=== PATIENT | female | born 1980 | race Two or more races ===

== ENCOUNTER 2017-04-24 00:37 | Emergency (ER) | payer BC, MEDICAID ==
[2017-04-24] MEDS ORDERED: Sodium Chloride 0.9% 2.5 ML Syringe FLUSH PRN (00:58)
[2017-04-24] MEDS ORDERED: Ketorolac 30 MG/ML SDV IVPUSH ONE (00:58)
[2017-04-24] MEDS ORDERED: Sodium Chloride 0.9% 10 ML Syringe FLUSH PRN (00:58)
[2017-04-24] MEDS ORDERED: Sodium Chloride 0.9% 1,000 ML IV ONE (00:58)
[2017-04-24] MEDS ORDERED: Ondansetron 4 MG/2 ML SDV IVPUSH ONE (00:58)
[2017-04-24] MEDS ORDERED: Morphine 2 MG/ML Syringe IVPUSH ONE (00:58)
--- NOTE | 2017-04-24 01:02 | EDM.PDOC ---
ED HPI GENERAL MEDICAL PROBLEM - General Chief Complaint: Abdominal Pain Stated Complaint: ABD PAIN Time Seen by Provider: 04/24/17 00:52 - History of Present Illness INITIAL COMMENTS - FREE TEXT/NARRATIVE: HISTORY AND PHYSICAL: History of present illness: Patient is a 37-year-old female who presents with onset of mid abdominal pain which is cramping and comes and goes in intensity associated with nausea and vomiting several hours ago. She says she has had this before and has been evaluated with ultrasound and CAT scans in fact was told [facility] that she might have a small blockage and they were going to operate but then they decided not to because she was too young. She says that she has had flareups of this over many years but recently she was she had no episodes of this. She is post for a month and is not breast-feeding. She said that she has issues with constipation but tries to take her MiraLAX daily and she says that she has had normal bowel movements including one today and then had some loose stools afterwards. She has had nausea and vomiting with the pain but the vomiting is more just dry heaves not actually fluid. She's no urinary complaints no fever no upper respiratory symptoms. She has never had any surgical procedures on her abdomen Review of systems: As per history of present illness and below otherwise all systems reviewed and negative. Past medical history: As per history of present illness and as reviewed below otherwise noncontributory. Surgical history: As per history of present illness and as reviewed below otherwise noncontributory. Social history: No reported history of drug or alcohol abuse. Family history: As per history of present illness and as reviewed below otherwise noncontributory. Physical exam: HEENT: Atraumatic, normocephalic, pupils reactive, negative for conjunctival pallor or scleral icterus, mucous membranes moist, throat clear, neck supple, nontender, trachea midline. Lungs: Clear to auscultation, breath sounds equal bilaterally, chest nontender. Heart: S1S2, regular, negative for clicks, rubs, or JVD. Abdomen: Soft, nondistended, nontender. The patient points to her mid abdomen as the area of tenderness initially when I palpated there was tenderness when I distract her there is minimal tenderness. Bowel sounds are very hypoactive and there is no rebound or guarding. Negative for masses or hepatosplenomegaly. Negative for costovertebral tenderness. Pelvis: Stable nontender. Genitourinary: Deferred. Rectal: Deferred. Extremities: Atraumatic, negative for cords or calf pain. Neurovascular unremarkable. Neuro: Awake, alert, oriented. Cranial nerves II through XII unremarkable. Cerebellum unremarkable. Motor and sensory unremarkable throughout. Exam nonfocal. Diagnostics: CBC CMP amylase lipase UA hCG lactic acid CT scan of the abdomen and pelvis Therapeutics: IV fluids Toradol Zofran morphine Patient is feeling much improved and I discussed with the CT scan findings which sound very similar to what she described to me where a surgeon was going to operate but then opted not to operate as there might be a blockage but then she improved. I told her that she needs to get connected with our clinic and follow this up as she has had multiple episodes in the past of this and perhaps she can get referral to GI. She may need other imaging going forward to further evaluate this as a motility issue or potential he as scar tissue that is tingling the bowel up. I told her this all can be discussed with her provider in the clinic and I will give her some Zofran and Bentyl for home. Impression: Abdominal pain with vomiting Definitive disposition and diagnosis as appropriate pending reevaluation and review of above. Abdominal Pain Score (Numeric/FACES): 9 - Related Data Allergies Allergy/AdvReac Type Severity Reaction Status Date / Time No Known Allergies Allergy Verified 04/24/17 00:51 Home Meds: Home Meds . [No Known Home Meds] 04/24/17 [History] Past Medical History - Past Health History Medical/Surgical History: Denies Medical/Surgical History [employer] History: Reports: - Infectious Disease History Infectious Disease History: Reports: Chicken Pox, Measles Social & Family History - Tobacco Use Smoking Status *Q: Former Smoker Used Tobacco, but Quit: Yes Month Tobacco Last Used: 2004 - Caffeine Use Caffeine Use: Reports: Coffee - Recreational Drug Use Recreational Drug Use: No ED ROS GENERAL - Review of Systems Review Of Systems: ROS reveals no pertinent complaints other than HPI. ED EXAM, GENERAL - Physical Exam Exam: See Below (See dictation) Course - Vital Signs Last Recorded V/S: Last Vital Signs Temp 36.6 C 04/24/17 03:17 Pulse 76 04/24/17 03:17 Resp 18 04/24/17 03:17 BP 102/53 L 04/24/17 03:17 Pulse Ox 97 04/24/17 03:17 - Orders/Labs/Meds Orders: Active Orders 24 hr Category Date Time Status Abdomen Pelvis w Cont [CT] Stat Exams 04/24/17 00:58 Taken Sodium Chloride 0.9% [Saline Flush] Med 04/24/17 00:58 Active 10 ml FLUSH ASDIRECTED PRN Sodium Chloride 0.9% [Saline Flush] Med 04/24/17 00:58 Active 2.5 ml FLUSH ASDIRECTED PRN Saline Lock Insert [OM.PC] Stat Oth 04/24/17 00:58 Ordered Medication Orders Sodium Chloride (Saline Flush) 10 ml FLUSH ASDIRECTED PRN PRN Reason: Keep Vein Open Last Admin: 04/24/17 01:21 Dose: 10 ml Sodium Chloride (Saline Flush) 2.5 ml FLUSH ASDIRECTED PRN PRN Reason: Keep Vein Open Last Admin: 04/24/17 01:21 Dose: 2.5 ml Labs: Laboratory Tests 04/24/17 04/24/17 04/24/17 Range/Units 01:15 01:15 01:15 WBC 6.51 (4.0-11.0) K/uL RBC 4.37 (4.30-5.90) M/uL Hgb 14.0 (12.0-16.0) g/dL Hct 40.3 (36.0-46.0) % MCV 92.2 (80.0-98.0) fL MCH 32.0 (27.0-32.0) pg MCHC 34.7 (31.0-37.0) g/dL RDW Std Deviation 43.7 (28.0-62.0) fl RDW Coeff of Reuben 13 (11.0-15.0) % Plt Count 232 (150-400) K/uL MPV 9.90 (7.40-12.00) fL Neut % (Auto) 67.4 (48.0-80.0) % Lymph % (Auto) 27.6 (16.0-40.0) % [place] % (Auto) 3.7 (0.0-15.0) % Eos % (Auto) 1.1 (0.0-7.0) % Baso % (Auto) 0.2 (0.0-1.5) % Neut # (Auto) 4.4 (1.4-5.7) K/uL Lymph # (Auto) 1.8 (0.6-2.4) K/uL [place] # (Auto) 0.2 (0.0-0.8) K/uL Eos # (Auto) 0.1 (0.0-0.7) K/uL Baso # (Auto) 0.0 (0.0-0.1) K/uL Nucleated RBC % 0.0 /100WBC Nucleated RBCs # 0 K/uL Lactate 1.2 (0.20-2.00) mmol/L Sodium 140 (136-146) mmol/L Potassium 3.8 (3.5-5.1) mmol/L Chloride 106 (98-110) mmol/L Carbon Dioxide 26 (21-31) mmol/L BUN 14 (6.0-23.0) mg/dL Creatinine 0.6 (0.6-1.5) mg/dL Est Cr Clr Drug Dosing 132.02 mL/min Estimated GFR (MDRD) > 60.0 ml/min Glucose 109 (60-110) mg/dL Calcium 9.3 (8.8-10.8) mg/dL Total Bilirubin 0.3 (0.1-1.5) mg/dL AST 18 (5-40) IU/L ALT 22 (8-54) IU/L Alkaline Phosphatase 83 (40-150) Total Protein 7.6 (6.0-8.0) g/dL Albumin 4.1 (3.5-5.0) g/dL Globulin 3.5 (2.0-3.5) g/dL Albumin/Globulin Ratio 1.2 L (1.3-2.8) Amylase 47 (10-90) U/L Lipase 9 (7-80) U/L HCG, Qual (NEG) Urine Color Urine Appearance Urine pH (5.0-8.0) Ur Specific [place] (1.001-1.035) Urine Protein (NEGATIVE) mg/dL Urine Glucose (UA) (NEGATIVE) mg/dL Urine Ketones (NEGATIVE) mg/dL Urine Occult Blood (NEGATIVE) Urine Nitrite (NEGATIVE) Urine Bilirubin (NEGATIVE) Urine Urobilinogen (<2.0) EU/dL Ur Leukocyte Esterase (NEGATIVE) Urine RBC (0-2/HPF) Urine WBC (0-5/HPF) Ur Epithelial Cells (NONE-FEW) Urine Bacteria (NEGATIVE) 04/24/17 04/24/17 Range/Units 01:15 02:00 WBC (4.0-11.0) K/uL RBC (4.30-5.90) M/uL Hgb (12.0-16.0) g/dL Hct (36.0-46.0) % MCV (80.0-98.0) fL MCH (27.0-32.0) pg MCHC (31.0-37.0) g/dL RDW Std Deviation (28.0-62.0) fl RDW Coeff of Reuben (11.0-15.0) % Plt Count (150-400) K/uL MPV (7.40-12.00) fL Neut % (Auto) (48.0-80.0) % Lymph % (Auto) (16.0-40.0) % [place] % (Auto) (0.0-15.0) % Eos % (Auto) (0.0-7.0) % Baso % (Auto) (0.0-1.5) % Neut # (Auto) (1.4-5.7) K/uL Lymph # (Auto) (0.6-2.4) K/uL [place] # (Auto) (0.0-0.8) K/uL Eos # (Auto) (0.0-0.7) K/uL Baso # (Auto) (0.0-0.1) K/uL Nucleated RBC % /100WBC Nucleated RBCs # K/uL Lactate (0.20-2.00) mmol/L Sodium (136-146) mmol/L Potassium (3.5-5.1) mmol/L Chloride (98-110) mmol/L Carbon Dioxide (21-31) mmol/L BUN (6.0-23.0) mg/dL Creatinine (0.6-1.5) mg/dL Est Cr Clr Drug Dosing mL/min Estimated GFR (MDRD) ml/min Glucose (60-110) mg/dL Calcium (8.8-10.8) mg/dL Total Bilirubin (0.1-1.5) mg/dL AST (5-40) IU/L ALT (8-54) IU/L Alkaline Phosphatase (40-150) Total Protein (6.0-8.0) g/dL Albumin (3.5-5.0) g/dL Globulin (2.0-3.5) g/dL Albumin/Globulin Ratio (1.3-2.8) Amylase (10-90) U/L Lipase (7-80) U/L HCG, Qual NEGATIVE (NEG) Urine Color YELLOW Urine Appearance CLEAR Urine pH 7.5 (5.0-8.0) Ur Specific [place] 1.010 (1.001-1.035) Urine Protein NEGATIVE (NEGATIVE) mg/dL Urine Glucose (UA) NEGATIVE (NEGATIVE) mg/dL Urine Ketones NEGATIVE (NEGATIVE) mg/dL Urine Occult Blood NEGATIVE (NEGATIVE) Urine Nitrite NEGATIVE (NEGATIVE) Urine Bilirubin NEGATIVE (NEGATIVE) Urine Urobilinogen 0.2 (<2.0) EU/dL Ur Leukocyte Esterase NEGATIVE (NEGATIVE) Urine RBC 0-3 (0-2/HPF) Urine WBC 0-3 (0-5/HPF) Ur Epithelial Cells FEW (NONE-FEW) Urine Bacteria FEW (NEGATIVE) Meds: Medications Generic Name Dose Route Start Last Admin Trade Name Yao PRN Reason Stop Dose Admin Sodium Chloride 10 ml 04/24/17 00:58 04/24/17 01:21 Saline Flush FLUSH 10 ml ASDIRECTED PRN Administration Keep Vein Open Sodium Chloride 2.5 ml 04/24/17 00:58 04/24/17 01:21 Saline Flush FLUSH 2.5 ml ASDIRECTED PRN Administration Keep Vein Open Discontinued Medications Generic Name Dose Route Start Last Admin Trade Name Yao PRN Reason Stop Dose Admin Sodium Chloride 1,000 mls @ 999 mls/hr 04/24/17 00:58 04/24/17 01:15 Normal Saline IV 04/24/17 01:58 999 mls/hr STAT ONE Administration Iopamidol 100 ml 04/24/17 02:01 04/24/17 02:26 Isovue Multipack-370 (76%) IVPUSH 04/24/17 02:02 100 ml ONETIME STA Administration Ketorolac Tromethamine 30 mg 04/24/17 00:58 04/24/17 01:17 Toradol IVPUSH 04/24/17 00:59 30 mg ONETIME ONE Administration Morphine Sulfate 4 mg 04/24/17 00:58 04/24/17 01:21 Morphine IVPUSH 04/24/17 00:59 4 mg ONETIME ONE Administration Ondansetron HCl 4 mg 04/24/17 00:58 04/24/17 01:15 Zofran IVPUSH 04/24/17 00:59 4 mg ONETIME ONE Administration Departure - Departure Time of Disposition: 03:32 Disposition: Home, Self-Care 01 Condition: Good Clinical Impression: Abdominal pain Qualifiers: Abdominal location: periumbilical Qualified Code(s): R10.33 - Periumbilical pain Vomiting Qualifiers: Vomiting type: unspecified Vomiting Intractability: non-intractable Nausea presence: with nausea Qualified Code(s): R11.2 - Nausea with vomiting, unspecified - Discharge Information Referrals: PCP,None [Primary Care Provider] - Forms: ED Department Discharge Additional Instructions: The following information is given to patients seen in the emergency department who are being discharged to home. This information is to outline your options for follow-up care. We provide all patients seen in our emergency department with a follow-up referral. The need for follow-up, as well as the timing and circumstances, are variable depending upon the specifics of your emergency department visit. If you don't have a primary care physician on staff, we will provide you with a referral. We always advise you to contact your personal physician following an emergency department visit to inform them of the circumstance of the visit and for follow-up with them and/or the need for any referrals to a consulting specialist. The emergency department will also refer you to a specialist when appropriate. This referral assures that you have the opportunity for followup care with a specialist. All of these measure are taken in an effort to provide you with optimal care, which includes your followup. Under all circumstances we always encourage you to contact your private physician who remains a resource for coordinating your care. When calling for followup care, please make the office aware that this follow-up is from your recent emergency room visit. If for any reason you are refused follow-up, please contact the [facility] emergency department at and ask to speak to the emergency department charge nurse. [facility] Primary care- Internal Medicine and Family [address] [address] These contact the clinic and schedule an appointment for reevaluation and further care of this recurring problem. Please try to eat high-fiber foods as you've been doing and use your MiraLAX on a daily basis. Please use Zofran and dicyclomine given to you from [facility] as needed for bowel cramping and vomiting. Return to ER as needed and as discussed. - My Orders Last 24 Hours: My Active Orders 04/24/17 00:58 Abdomen Pelvis w Cont [CT] Stat Sodium Chloride 0.9% [Saline Flush] 10 ml FLUSH ASDIRECTED PRN Sodium Chloride 0.9% [Saline Flush] 2.5 ml FLUSH ASDIRECTED PRN Saline Lock Insert [OM.PC] Stat - Assessment/Plan Last 24 Hours: My Active Orders 04/24/17 00:58 Abdomen Pelvis w Cont [CT] Stat Sodium Chloride 0.9% [Saline Flush] 10 ml FLUSH ASDIRECTED PRN Sodium Chloride 0.9% [Saline Flush] 2.5 ml FLUSH ASDIRECTED PRN Saline Lock Insert [OM.PC] Stat
[2017-04-24 01:58] LABS: CHLORIDE,CL 106 mmol/L (98-110); SODIUM,NA 140 mmol/L (136-146)
[2017-04-24] MEDS ORDERED: Iopamidol 755 MG/ML 500 ML Multipack Bottle IVPUSH STA (02:01)
--- NOTE | 2017-04-25 17:44 | CT ---
EXAM DATE: 04/24/17 PATIENT'S AGE: 37 Patient: BILLIE ISLAS Facility: [place], [place] Site . Site : [id number] Study: CT Abdomen/Pelvis [id number] 3:05:13 AM Ordering Physician: Yahir Saez Final Report: INDICATION: Abdominal pain TECHNIQUE: CT Abdomen and pelvis with i.v. contrast. Coronal and sagittal reformats were obtained. CONTRAST: Intravenous COMPARISON: None FINDINGS: Lower chest: Unremarkable. Liver: Unremarkable. Spleen: Unremarkable. Pancreas: Unremarkable. Gallbladder: Unremarkable. Kidney: Unremarkable. No kidney or ureteral stones or obstruction seen. Adrenal: Unremarkable. Bowel: The small bowel is mildly prominent in the upper abdomen. No definite transition point is identified. The appendix is normal in appearance and size. Small fat containing umbilical hernia is noted. Vascular: Unremarkable. Lymph: Unremarkable. Peritoneum: Unremarkable. No pneumoperitoneum is seen. Small amount of ascites is present and is likely physiologic in origin. Pelvis: Unremarkable. Soft tissue: Unremarkable. Bone: Unremarkable for age. IMPRESSION: 1. The small bowel is mildly prominent in the upper abdomen. No definite transition point is identified. Clinical and imaging follow up is recommended to distinguish between peristalsis, early small bowel obstruction, or adynamic ileus. Dictated by Lake Shelton MD @ 04/24/2017 3:15:34 AM Dictated by: Lake Shelton MD @ 04/24/2017 03:15:37 (Electronic Signature) Report Signed by Proxy. NATALIA
== END 2017-04-24 03:52 | disposition home or self-care (01) ==
LOC: MW.ED 00:37
DX: R10.33 Periumbilical pain (principal); R11.2 Nausea with vomiting, unspecified; Z87.891 Personal history of nicotine dependence
CPT/HCPCS: 74177; 80053; 81001; 82150; 83605; 83690; 84703; 85025; 96361; 96374; 96375; 99284; J1885; J2270; J2405; J7040; Q9967

== ENCOUNTER 2017-06-24 22:28 | Emergency (ER) | payer BC, MEDICAID ==
--- NOTE | 2017-06-24 22:34 | EDM.PDOC ---
ED HPI GENERAL MEDICAL PROBLEM - General Chief Complaint: Gastrointestinal Problem Stated Complaint: NAUSEA/VOMITING Time Seen by Provider: 06/24/17 22:45 - History of Present Illness INITIAL COMMENTS - FREE TEXT/NARRATIVE: HISTORY AND PHYSICAL: History of present illness: Patient is a 37-year-old female who presents today with mid abdominal pain which is crampy and sharp in nature associated with nausea and vomiting and inability to tolerate by mouth for the last 3 hours. Patient says she has episodes like this in the past and I've seen her here in April for same. The patient says this is typical of her episodic abdominal pain with vomiting. She has not had diarrhea and in fact had a normal bowel movement earlier today. She has not had any new foods and has been trying to eat more healthy diet. She has had no recent travel no fevers no cough runny nose upper respiratory infection and no flank pain or urinary complaints. Patient did not take any medications prior to coming here. The patient says that the pain does not localize right or left and is mostly in the mid abdominal area and she feels somewhat bloated. Everything about today's episode is very similar to her prior episodes. The patient is not had dizziness or lightheadedness. Please note that this patient was seen in the emergency department by me on April 24 of last year. At that time she had presented with crampy mid abdominal pain which waxed and waned in intensity that was associated with nausea and vomiting. On that visit she had told me that this has happened many times before and had been evaluated with imaging ultrasounds and CAT scans and that she was in fact told in [place] that she might have a small bowel obstruction and they were going to operate but then they decided not to because "she was too young". She told me at that time that she has flareups many times over the last few years but when she was recently she did not have any flareups. The patient delivered her baby in March. Patient also told me at that time she has issues with constipation but takes MiraLAX on a daily basis in order to prevent this. On that evaluation in April she had a full lab workup and CAT scan and the CAT scan revealed a potential ileus versus early small bowel obstruction that there was no transition point and because she was feeling much improved and she thought that her symptoms were very similar to prior episodes that she preferred to follow-up in the clinic. The patient has no vaginal bleeding or lower abdominal/pelvic pain Review of systems: As per history of present illness and below otherwise all systems reviewed and negative. Past medical history: As per history of present illness and as reviewed below otherwise noncontributory. Surgical history: As per history of present illness and as reviewed below otherwise noncontributory. Social history: No reported history of drug or alcohol abuse. Family history: As per history of present illness and as reviewed below otherwise noncontributory. Physical exam: Gen.: Well-developed well-nourished female who is nontoxic and vital signs are noted by me including triage blood pressure HEENT: Atraumatic, normocephalic, pupils reactive, negative for conjunctival pallor or scleral icterus, mucous membranes tacky throat clear, neck supple, nontender, trachea midline. Lungs: Clear to auscultation, breath sounds equal bilaterally, chest nontender. Heart: S1S2, regular, negative for clicks, rubs, or JVD. Abdomen: Soft, nondistended, bowel sounds are normoactive with an occasional santos, there is no tympany on percussion, there is tenderness in the mid abdomen area on deep palpation without rebound or guarding. Negative for masses or hepatosplenomegaly. Negative for costovertebral tenderness. Pelvis: Stable nontender. Genitourinary: Deferred. Rectal: Deferred. Extremities: Atraumatic, negative for cords or calf pain. Neurovascular unremarkable. Neuro: Awake, alert, oriented. Cranial nerves II through XII unremarkable. Cerebellum unremarkable. Motor and sensory unremarkable throughout. Exam nonfocal. Diagnostics: CBC CMP amylase lipase lactic acid UA hCG CT scan of the abdomen and pelvis EKG , please see below for more testing Therapeutics: IV O2 monitor IV fluids Zofran and morphine Please note that the patient's urine test is positive. The patient told me that she had a normal period last month but she does not use contraception and she is completely surprised by this test results. SHe has a 4- month-old child at home. I will add a serum quantitative hCG canceled the CAT scan and order a pelvic ultrasound. Patient is aware of ultrasound results revealing an intrauterine at 6 weeks 1 day but with a bradycardic heartbeat. She is aware that she needs close follow-up with one of our OB MDs and she currently tells me that she is having no abdominal pain she had when she arrived. Due to her history I told her that we cannot perform CAT scan or x-rays due to the but as she is feeling better she feels comfortable with follow-up and she will return if the pain returns or symptoms progress. She is currently not vomiting I will send her home with some Zofran. Impression: Abdominal pain with vomiting (with history of similar episodes), stable improved , first trimester with bradycardia Definitive disposition and diagnosis as appropriate pending reevaluation and review of above. abdominal pain Pain Score (Numeric/FACES): 8 - Related Data Allergies Allergy/AdvReac Type Severity Reaction Status Date / Time No Known Allergies Allergy Verified 06/24/17 22:41 Home Meds: Home Meds . [No Known Home Meds] 04/24/17 [History] Past Medical History - Past Health History Medical/Surgical History: Denies Medical/Surgical History [employer] History: Reports: - Infectious Disease History Infectious Disease History: Reports: Chicken Pox, Measles Social & Family History - Tobacco Use Smoking Status *Q: Former Smoker Used Tobacco, but Quit: Yes Month Tobacco Last Used: 2004 - Caffeine Use Caffeine Use: Reports: Coffee - Recreational Drug Use Recreational Drug Use: No ED ROS GENERAL - Review of Systems Review Of Systems: ROS reveals no pertinent complaints other than HPI. ED EXAM, GENERAL - Physical Exam Exam: See Below (see dictation) Course - Vital Signs Last Recorded V/S: Last Vital Signs Temp 36.8 C 06/24/17 22:31 Pulse 78 06/25/17 00:45 Resp 18 06/25/17 00:45 BP 102/60 06/25/17 00:45 Pulse Ox 97 06/25/17 00:45 - Orders/Labs/Meds Orders: Active Orders 24 hr Category Date Time Status Cardiac Monitoring [RC] . DIRECTED Care 06/24/17 22:56 Active EKG Documentation Completion [RC] STAT Care 06/24/17 22:56 Active Pulse Oximetry [RC] ASDIRECTED Care 06/24/17 22:56 Active OB 1st Tri Sgl 1st Gest [US] Stat Exams 06/25/17 00:19 Taken Sodium Chloride 0.9% [Saline Flush] Med 06/24/17 22:57 Active 10 ml FLUSH ASDIRECTED PRN Sodium Chloride 0.9% [Saline Flush] Med 06/24/17 22:57 Active 2.5 ml FLUSH ASDIRECTED PRN Saline Lock Insert [OM.PC] Stat Oth 06/24/17 22:56 Ordered Medication Orders Sodium Chloride (Saline Flush) 10 ml FLUSH ASDIRECTED PRN PRN Reason: Keep Vein Open Sodium Chloride (Saline Flush) 2.5 ml FLUSH ASDIRECTED PRN PRN Reason: Keep Vein Open Labs: Laboratory Tests 06/24/17 06/24/17 06/24/17 Range/Units 22:40 22:40 22:40 WBC 6.63 (4.0-11.0) K/uL RBC 4.48 (4.30-5.90) M/uL Hgb 13.9 (12.0-16.0) g/dL Hct 40.8 (36.0-46.0) % MCV 91.1 (80.0-98.0) fL MCH 31.0 (27.0-32.0) pg MCHC 34.1 (31.0-37.0) g/dL RDW Std Deviation 41.1 (28.0-62.0) fl RDW Coeff of Reuben 12 (11.0-15.0) % Plt Count 269 (150-400) K/uL MPV 9.80 (7.40-12.00) fL Neut % (Auto) 68.2 (48.0-80.0) % Lymph % (Auto) 27.5 (16.0-40.0) % Garza % (Auto) 3.5 (0.0-15.0) % Eos % (Auto) 0.6 (0.0-7.0) % Baso % (Auto) 0.2 (0.0-1.5) % Neut # (Auto) 4.5 (1.4-5.7) K/uL Lymph # (Auto) 1.8 (0.6-2.4) K/uL Garza # (Auto) 0.2 (0.0-0.8) K/uL Eos # (Auto) 0.0 (0.0-0.7) K/uL Baso # (Auto) 0.0 (0.0-0.1) K/uL Nucleated RBC % 0.0 /100WBC Nucleated RBCs # 0 K/uL Lactate 0.8 (0.20-2.00) mmol/L Sodium 140 (136-146) mmol/L Potassium 3.9 (3.5-5.1) mmol/L Chloride 107 (98-110) mmol/L Carbon Dioxide 24 (21-31) mmol/L BUN 11 (6.0-23.0) mg/dL Creatinine 0.8 (0.6-1.5) mg/dL Est Cr Clr Drug Dosing 99.01 mL/min Estimated GFR (MDRD) > 60.0 ml/min Glucose 101 (60-110) mg/dL Calcium 9.3 (8.8-10.8) mg/dL Total Bilirubin 0.4 (0.1-1.5) mg/dL AST 15 (5-40) IU/L ALT 16 (8-54) IU/L Alkaline Phosphatase 73 (40-150) Total Protein 7.6 (6.0-8.0) g/dL Albumin 4.3 (3.5-5.0) g/dL Globulin 3.3 (2.0-3.5) g/dL Albumin/Globulin Ratio 1.3 (1.3-2.8) Amylase 40 (10-90) U/L Lipase 9 (7-80) U/L HCG, Quant mIU/mL Urine Color Urine Appearance Urine pH (5.0-8.0) Ur Specific [place] (1.001-1.035) Urine Protein (NEGATIVE) mg/dL Urine Glucose (UA) (NEGATIVE) mg/dL Urine Ketones (NEGATIVE) mg/dL Urine Occult Blood (NEGATIVE) Urine Nitrite (NEGATIVE) Urine Bilirubin (NEGATIVE) Urine Urobilinogen (<2.0) EU/dL Ur Leukocyte Esterase (NEGATIVE) Urine RBC (0-2/HPF) Urine WBC (0-5/HPF) Ur Epithelial Cells (NONE-FEW) Urine Bacteria (NEGATIVE) Urine HCG, Qual (NEGATIVE) 06/24/17 06/24/17 06/24/17 Range/Units 22:40 23:52 23:52 WBC (4.0-11.0) K/uL RBC (4.30-5.90) M/uL Hgb (12.0-16.0) g/dL Hct (36.0-46.0) % MCV (80.0-98.0) fL MCH (27.0-32.0) pg MCHC (31.0-37.0) g/dL RDW Std Deviation (28.0-62.0) fl RDW Coeff of Reuben (11.0-15.0) % Plt Count (150-400) K/uL MPV (7.40-12.00) fL Neut % (Auto) (48.0-80.0) % Lymph % (Auto) (16.0-40.0) % Garza % (Auto) (0.0-15.0) % Eos % (Auto) (0.0-7.0) % Baso % (Auto) (0.0-1.5) % Neut # (Auto) (1.4-5.7) K/uL Lymph # (Auto) (0.6-2.4) K/uL Garza # (Auto) (0.0-0.8) K/uL Eos # (Auto) (0.0-0.7) K/uL Baso # (Auto) (0.0-0.1) K/uL Nucleated RBC % /100WBC Nucleated RBCs # K/uL Lactate (0.20-2.00) mmol/L Sodium (136-146) mmol/L Potassium (3.5-5.1) mmol/L Chloride (98-110) mmol/L Carbon Dioxide (21-31) mmol/L BUN (6.0-23.0) mg/dL Creatinine (0.6-1.5) mg/dL Est Cr Clr Drug Dosing mL/min Estimated GFR (MDRD) ml/min Glucose (60-110) mg/dL Calcium (8.8-10.8) mg/dL Total Bilirubin (0.1-1.5) mg/dL AST (5-40) IU/L ALT (8-54) IU/L Alkaline Phosphatase (40-150) Total Protein (6.0-8.0) g/dL Albumin (3.5-5.0) g/dL Globulin (2.0-3.5) g/dL Albumin/Globulin Ratio (1.3-2.8) Amylase (10-90) U/L Lipase (7-80) U/L HCG, Quant 7034.9 mIU/mL Urine Color YELLOW Urine Appearance CLEAR Urine pH 6.5 (5.0-8.0) Ur Specific [place] <= 1.005 (1.001-1.035) Urine Protein NEGATIVE (NEGATIVE) mg/dL Urine Glucose (UA) NEGATIVE (NEGATIVE) mg/dL Urine Ketones NEGATIVE (NEGATIVE) mg/dL Urine Occult Blood NEGATIVE (NEGATIVE) Urine Nitrite NEGATIVE (NEGATIVE) Urine Bilirubin NEGATIVE (NEGATIVE) Urine Urobilinogen 0.2 (<2.0) EU/dL Ur Leukocyte Esterase NEGATIVE (NEGATIVE) Urine RBC 0-1 (0-2/HPF) Urine WBC 0-1 (0-5/HPF) Ur Epithelial Cells RARE (NONE-FEW) Urine Bacteria RARE (NEGATIVE) Urine HCG, Qual POSITIVE (NEGATIVE) Meds: Medications Generic Name Dose Route Start Last Admin Trade Name Freq PRN Reason Stop Dose Admin Sodium Chloride 10 ml 06/24/17 22:57 Saline Flush FLUSH ASDIRECTED PRN Keep Vein Open Sodium Chloride 2.5 ml 06/24/17 22:57 Saline Flush FLUSH ASDIRECTED PRN Keep Vein Open Discontinued Medications Generic Name Dose Route Start Last Admin Trade Name Freq PRN Reason Stop Dose Admin Sodium Chloride 1,000 mls @ 999 mls/hr 06/24/17 22:57 06/24/17 22:40 Normal Saline IV 06/24/17 23:57 999 mls/hr STAT ONE Administration Iopamidol 100 ml 06/24/17 23:15 06/24/17 23:16 Isovue-370 (76%) IVPUSH 06/24/17 23:16 100 ml ONETIME STA Administration Morphine Sulfate 4 mg 06/24/17 22:57 06/24/17 23:10 Morphine IVPUSH 06/24/17 22:58 4 mg ONETIME ONE Administration Ondansetron HCl 4 mg 06/24/17 22:57 06/24/17 23:09 Zofran IVPUSH 06/24/17 22:58 4 mg ONETIME ONE Administration Departure - Departure Time of Disposition: 02:52 Disposition: Home, Self-Care 01 Condition: Good Clinical Impression: Abdominal pain, Vomiting, First trimester , bradycardia - Discharge Information Referrals: PCP,None [Primary Care Provider] - Forms: ED Department Discharge Additional Instructions: The following information is given to patients seen in the emergency department who are being discharged to home. This information is to outline your options for follow-up care. We provide all patients seen in our emergency department with a follow-up referral. The need for follow-up, as well as the timing and circumstances, are variable depending upon the specifics of your emergency department visit. If you don't have a primary care physician on staff, we will provide you with a referral. We always advise you to contact your personal physician following an emergency department visit to inform them of the circumstance of the visit and for follow-up with them and/or the need for any referrals to a consulting specialist. The emergency department will also refer you to a specialist when appropriate. This referral assures that you have the opportunity for followup care with a specialist. All of these measure are taken in an effort to provide you with optimal care, which includes your followup. Under all circumstances we always encourage you to contact your private physician who remains a resource for coordinating your care. When calling for followup care, please make the office aware that this follow-up is from your recent emergency room visit. If for any reason you are refused follow-up, please contact the [facility] emergency department at and ask to speak to the emergency department charge nurse. [facility] [address] [place] [id number] [facility] [address] [place] [id number] Please contact one of her OB MDs using resources given to above for close follow -up of this and reevaluation of the low heart rate of the baby. Strict pelvic rest with nothing in the vagina until you're seen in the clinic. Use Zofran you have been given for nausea and vomiting and use only over-the- counter Tylenol if you experience pain. Return to ER as needed and as discussed - My Orders Last 24 Hours: My Active Orders 06/24/17 22:56 Cardiac Monitoring [RC] . DIRECTED EKG Documentation Completion [RC] STAT Pulse Oximetry [RC] ASDIRECTED Saline Lock Insert [OM.PC] Stat 06/24/17 22:57 Sodium Chloride 0.9% [Saline Flush] 10 ml FLUSH ASDIRECTED PRN Sodium Chloride 0.9% [Saline Flush] 2.5 ml FLUSH ASDIRECTED PRN 06/25/17 00:19 OB 1st Tri Sgl 1st Gest [US] Stat - Assessment/Plan Last 24 Hours: My Active Orders 06/24/17 22:56 Cardiac Monitoring [RC] . DIRECTED EKG Documentation Completion [RC] STAT Pulse Oximetry [RC] ASDIRECTED Saline Lock Insert [OM.PC] Stat 06/24/17 22:57 Sodium Chloride 0.9% [Saline Flush] 10 ml FLUSH ASDIRECTED PRN Sodium Chloride 0.9% [Saline Flush] 2.5 ml FLUSH ASDIRECTED PRN 06/25/17 00:19 OB 1st Tri Sgl 1st Gest [US] Stat
[2017-06-24] MEDS ORDERED: Ondansetron 4 MG/2 ML SDV IVPUSH ONE (22:57)
[2017-06-24] MEDS ORDERED: Sodium Chloride 0.9% 2.5 ML Syringe FLUSH PRN (22:57)
[2017-06-24] MEDS ORDERED: Sodium Chloride 0.9% 1,000 ML IV ONE (22:57)
[2017-06-24] MEDS ORDERED: Sodium Chloride 0.9% 10 ML Syringe FLUSH PRN (22:57)
[2017-06-24] MEDS ORDERED: Morphine 2 MG/ML Syringe IVPUSH ONE (22:57)
[2017-06-24] MEDS ORDERED: Iopamidol 755 Mg/ML 100 ML Bottle IVPUSH STA (23:15)
[2017-06-24 23:20] LABS: CHLORIDE,CL 107 mmol/L (98-110); SODIUM,NA 140 mmol/L (136-146)
--- NOTE | 2017-06-27 10:30 | US ---
EXAM DATE: 06/24/17 PATIENT'S AGE: 37 Patient: BILLIE ISLAS Facility: [place], [place] Site . Site : [id number] Study: US OB Pelvis [id number] 1:30:32 AM Ordering Physician: Yahir Saez Final Report: INDICATION: Vaginal bleeding pain TECHNIQUE: Real-time garcia-scale imaging of the pelvis was performed. FINDINGS: Sonographic imaging demonstrates presence of a intrauterine with intrauterine gestational sac yolk sac and pole present. [place]-rump length measures 0.4 centimeters corresponding with gestational age of 6 weeks 1 day. cardiac activity measures 62 beats per minute. Possible tiny 1 x 0.2 centimeter subchorionic hemorrhage. 1.8 x 1.0 centimeter probable hemorrhagic corpus luteum cyst on the left. Right ovary is unremarkable. Small amount of free fluid in the pelvis. No suspicious adnexal mass. IMPRESSION: 1. Intrauterine with presence of intrauterine gestational sac pole and yolk sac . [place]-rump length measured 4 millimeters corresponding to gestational age of 6 weeks 1 day. Possible tiny 1 x 0.2 centimeters subchorionic hemorrhage. 2. Bradycardia measuring 62 beats per minute . Recommend follow-up imaging to evaluate for progression of this very early . 3. Probable hemorrhagic corpus luteum cyst. Small amount of free fluid in the pelvis . Dictated by Dot Abreu MD @ Jun 25 2017 2:25AM (Electronic Signature) Report Signed by Proxy. NATALIA
== END 2017-06-25 03:00 | disposition home or self-care (01) ==
LOC: MW.ED 22:28
DX: O21.9 Vomiting of pregnancy, unspecified (principal); O99.89 Other specified diseases and conditions complicating pregnancy, childbirth and the puerperium; R10.9 Unspecified abdominal pain; O76 Abnormality in fetal heart rate and rhythm complicating labor and delivery; Z3A.01 Less than 8 weeks gestation of pregnancy; Z87.891 Personal history of nicotine dependence
CPT/HCPCS: 36415; 76801; 80053; 81001; 81025; 82150; 83605; 83690; 84702; 85025; 93005; 96361; 96374; 96375; 99285; J2270; J2405; J7040; Q9967; 99284

== ENCOUNTER 2018-08-06 15:15 | Observation (INO) | payer BC | END 2018-08-06 18:07 | LOC: MW.OB 15:15 → MW.OBCHECK 15:15 → MW.OB 15:53 | PROVIDERS: ADMIT Obstetrics & Gynecology; ATTEND Obstetrics & Gynecology | DX: O47.1 False labor at or after 37 completed weeks of gestation (principal); O09.523 Supervision of elderly multigravida, third trimester; O99.343 Other mental disorders complicating pregnancy, third trimester; F32.9 Major depressive disorder, single episode, unspecified; Z3A.37 37 weeks gestation of pregnancy ==